=== PATIENT | female | born 2000 | race Hispanic/Latino ===

== ENCOUNTER 2021-06-17 18:14 | Emergency (ER) | payer OTHER, MEDICAID, SELFPAY ==
[2021-06-17 18:28] VITALS: BP 130/63; PULSE 78; RESP 19; TEMP 36.5; O2SAT 96; BMI 23.9
--- NOTE | 2021-06-17 19:16 | DI.US.S_ITS ---
PROCEDURE: US PELVIC COMPLETE INDICATIONS: RIGHT PELVIC PAIN TECHNIQUE: Real-time scanning was performed of the pelvic organs, with image documentation. Additional endovaginal scanning was necessary due to incomplete visualization of the adnexal and endometrial structures by transabdominal scanning. COMPARISON: None. FINDINGS: Uterus: Uterus is anteverted and normal in size at 6.9 x 3.2 x 3.7 cm. The myometrium is homogeneous. The endometrium measures 7.9 mm combined thickness. Ovaries: The right ovary measures 2.7 x 2.4 x 4.1 cm. The left ovary measures 3.3 x 3.1 x 2.8 cm. The ovaries have a normal sonographic appearance. There is a complex cyst in the left ovary measuring 1.9 x 2.0 x 2.0 cm. No adnexal masses are seen. Other: No pathologic free abdominal or pelvic fluid. IMPRESSION: 1. A cause for right pelvic pain is not identified. 2. There is a 1.9 x 2.0 x 2.0 complex cyst in left ovary, most likely a hemorrhagic cyst. If clinically indicated, a follow-up ultrasound is recommended in 6-12 weeks. 3. No free fluid in the cul-de-sac. We strive to produce accurate, complete, and clear reports of imaging services. To assist us in improving patient care, this report was composed using standard report templates and voice recognition software. Therefore, it may contain abnormal punctuation, insertions and/or omissions. Occasional wrong-word or sound-alike substitutions may occur. Though we review the report and make efforts to correct it, we do recommend that the report be read carefully in proper context to recognize any text inaccuracies. Dictated by: Opal Bonds M.D. on 06/17/2021 at 20:00 Approved by: Opal Bonds M.D. on 06/17/2021 at 20:03
[2021-06-17 19:33] LABS: Add Manual Diff / Slide Review NO; Basophils Absolute Auto 100 /uL (0-100); Basophils Percent Auto 0.8 % (0-2); Eosinophils Absolute Auto 100 /uL (0-450); Eosinophils Percent Auto 1.7 % (2-4); Hematocrit 38.6 % (36-46); Hemoglobin 12.6 g/dL (12.0-16.0); Lymphocytes Absolute Auto 1700 /uL (1100-4500); Lymphocytes Percent Auto 23.6 % (25-40); Mean Corpuscular HGB Conc 32.5 % (30-36); Mean Corpuscular Hemoglobin 26.8 PG (26-34); Mean Corpuscular Volume 82.5 fL (80-100); Monocytes Absolute Auto 600 /uL (0-900); Monocytes Percent Auto 7.8 % (3-14); Neutrophils Absolute Auto 4800 /uL (1500-7000); Neutrophils Percent Auto 66.1 % (50-75); Platelet Count 237 X10^3/uL (150-400); Red Blood Cell Count 4.68 X10^6/uL (4.0-5.2); Red Cell Distribution Width 15.9 % (11.6-14.8); White Blood Cell Count 7.3 X10^3/uL (4.5-11.0)
[2021-06-17 19:49] LABS: Alanine Aminotransferase 11 IU/L (<35); Albumin 4.7 g/dL (3.5-5.0); Albumin Globulin Ratio 1.3 (1.0-2.8); Alkaline Phosphatase 54 U/L (38-126); Aspartate Aminotransferase 29 IU/L (14-36); BUN Creatinine Ratio 13.8 (6-22); Bilirubin Total 0.6 mg/dL (0.2-1.3); Blood Urea Nitrogen 9 mg/dL (7-17); Calcium 9.2 mg/dL (8.4-10.2); Carbon Dioxide 25 mmol/L (22-32); Chloride 106 mmol/L (98-107); Estimated Glomerular Filt Rate > 60 mL/min (>60); Globulin 3.5 g/dL (1.7-4.1); Glucose 92 mg/dL (70-100); HEMOLYSIS 44 (0-50); Lipase 85 U/L (23-300); Potassium 4.2 mmol/L (3.4-5.1); Sodium 141 mmol/L (137-145); Total Protein 8.2 g/dL (6.3-8.2)
--- NOTE | 2021-06-17 20:12 | ED.ABDPAIN ---
HPI - Abdominal Pain <DAISY Roman - Last Filed: 06/17/21 21:18> General Chief Complaint: Abdominal Pain Stated Complaint: ABD pain lower right Time Seen by Provider: 06/17/21 19:10 Source: patient Mode of arrival: Family Vehicle History of Present Illness HPI narrative: This is a 21-year-old female presents to the emergency department complaining of right pelvic and left pelvic tenderness which alternates and comes and goes over the last week. She states she has a history of ovarian cysts. States her last menses was May 26, 2021. She is not on any control this time, states that she is sexually active, denies any abnormal vaginal discharge, fever, other abdominal pain, back pain, flank pain, lightheadedness, weakness, dysuria, or blood in her urine or stool. She states she is having regular bowel movements, denies any pain with them. She denies any nausea, vomiting, or constipation. Related Data Allergies Allergy/AdvReac Type Severity Reaction Status Date / Time No Known Drug Allergies Allergy Verified 06/17/21 18:28 Review of Systems <DAISY Roman - Last Filed: 06/17/21 21:18> Review of Systems Narrative: General: denies fever, chills, malaise, sweats, fatigue Head/Neck: denies headache, neck pain, dizziness Eyes: denies visual changes, eye pain Cardio: denies chest pain, palpitations, edema Respiratory: denies dyspnea, cough, orthopnea GI: denies abdominal pain, nausea, vomiting, or diarrhea, endorses low left pelvic pain, sometimes it is on the right : denies dysuria, hematuria, urinary retention, frequency or incontinence MSK: denies joint pain, muscle weakness Skin: denies rash, itching, skin lesions or other Neuro: denies numbness, tingling Patient History <DAISY Roman - Last Filed: 06/17/21 21:18> Social History Smoking Status: Never smoker Smoking Status: Never smoker alcohol intake frequency: holidays/special occasions only Substance Use Type: marijuana Exam <DAISY Roman - Last Filed: 06/17/21 21:18> Narrative Exam Narrative: Independently reviewed vitals signs and nursing notes. General: cooperative, comfortable, in no acute distress, well developed and well groomed Head: atraumatic, symmetrical facial expressions Neck: supple, atraumatic, without lymphadenopathy. Eyes: pupils equal round and reactive, EOMI, conjunctiva normal Nose: nares patent, no rhinorrhea Mouth/Throat: uvula midline, moist mucus membranes Cardiovascular: regular rate and rhythm, no peripheral edema, warm extremities Respiratory: normal effort, able to speak in complete sentences, no audible wheezing, stridor, or rales. No retractions or tachypnea. GI: abdomen soft, nontender to palpation, nondistended, no masses, no exquisite tenderness with exam, without guarding or rebound. MSK: moves all extremities, ambulatory w/steady gait, neurovascularly intact, no weakness Skin: brisk capillary refill, no rash, no erythema Neuro: normal speech and cognition, A&O x3, normal tone Psych: mental status is grossly normal, congruent mood, normal affect, pleasant and cooperative Initial Vital Signs Initial Vital Signs: Vital Signs Temperature 97.7 F 06/17/21 18:28 Pulse Rate 78 06/17/21 18:28 Respiratory Rate 19 06/17/21 18:28 Blood Pressure 130/63 06/17/21 18:28 Pulse Oximetry 96 06/17/21 18:28 <Herman Lundy DO - Last Filed: 06/17/21 21:46> Initial Vital Signs Initial Vital Signs: Vital Signs Temperature 97.7 F 06/17/21 18:28 Pulse Rate 78 06/17/21 18:28 Respiratory Rate 19 06/17/21 18:28 Blood Pressure 130/63 06/17/21 18:28 Pulse Oximetry 96 06/17/21 18:28 Course <DAISY Roman - Last Filed: 06/17/21 21:18> Orders Ordered: ED Orders 06/17/21 19:10 Complete Blood Count AUTO DIFF Stat Comprehensive Metabolic Panel Stat Lipase Stat 06/17/21 19:16 US pelvic complete Stat Vital Signs Vital signs: Vital Signs - 8 hr 06/17/21 18:28 Temperature 97.7 F Pulse Rate 78 Respiratory Rate 19 Blood Pressure 130/63 Pulse Oximetry 96 <DO Sorin Duckworth Last Filed: 06/17/21 21:46> Orders Ordered: ED Orders 06/17/21 19:10 Complete Blood Count AUTO DIFF Stat Comprehensive Metabolic Panel Stat Lipase Stat 06/17/21 19:16 US pelvic complete Stat Vital Signs Vital signs: Vital Signs - 8 hr 06/17/21 18:28 Temperature 97.7 F Pulse Rate 78 Respiratory Rate 19 Blood Pressure 130/63 Pulse Oximetry 96 MDM - Abdominal Pain <DAISY Roman - Last Filed: 06/17/21 21:18> Lab Data Result diagrams: 06/17/21 19:10 06/17/21 19:10 Labs: Lab Results 06/17/21 06/17/21 Range/Units 19:10 19:10 WBC 7.3 (4.5-11.0) X10^3/uL RBC 4.68 (4.0-5.2) X10^6/uL Hgb 12.6 (12.0-16.0) g/dL Hct 38.6 (36-46) % MCV 82.5 (80-100) fL MCH 26.8 (26-34) PG MCHC 32.5 (30-36) % RDW 15.9 H (11.6-14.8) % Plt Count 237 (150-400) X10^3/uL Neut % (Auto) 66.1 (50-75) % Lymph % (Auto) 23.6 L (25-40) % [place] % (Auto) 7.8 (3-14) % Eos % (Auto) 1.7 L (2-4) % Baso % (Auto) 0.8 (0-2) % Neut # (Auto) 4800 (6016-7418) /uL Lymph # (Auto) 1700 (3158-6338) /uL [place] # (Auto) 600 (0-900) /uL Eos # (Auto) 100 (0-450) /uL Baso # (Auto) 100 (0-100) /uL Sodium 141 (137-145) mmol/L Potassium 4.2 (3.4-5.1) mmol/L Chloride 106 (98-107) mmol/L Carbon Dioxide 25 (22-32) mmol/L BUN 9 (7-17) mg/dL Creatinine 0.65 (0.52-1.04) mg/dL Estimated GFR > 60 (>60) mL/min BUN/Creatinine Ratio 13.8 (6-22) Glucose 92 (70-100) mg/dL Calcium 9.2 (8.4-10.2) mg/dL Total Bilirubin 0.6 (0.2-1.3) mg/dL AST 29 (14-36) IU/L ALT 11 (<35) IU/L Alkaline Phosphatase 54 (38-126) U/L Total Protein 8.2 (6.3-8.2) g/dL Albumin 4.7 (3.5-5.0) g/dL Globulin 3.5 (1.7-4.1) g/dL Albumin/Globulin Ratio 1.3 (1.0-2.8) Lipase 85 (23-300) U/L Point of care testing: Point of Care Testing Test Results Negative Urine Dip Bedside Urine Glucose Negative Bedside Urine Bilirubin - Negative Bedside Urine Ketone - Negative Urine Specific [place] 1.02 Bedside Urine Occult Blood - Negative Bedside Urine pH 6.5 Bedside Urine Protein - Negative Bedside Urine Urobilinogen - Negative Bedside Urine Nitrite - Negative Bedside Urine Leukocytes - Negative Esterase Imaging Data US - MEAT CUTTER APPRENTICE: Radiologist's Impression: PROCEDURE:? US PELVIC COMPLETE ? INDICATIONS:? RIGHT PELVIC PAIN ? TECHNIQUE:? Real-time scanning was performed of the pelvic organs, with image documentation.? Additional endovaginal scanning was necessary due to incomplete visualization of the adnexal and endometrial structures by transabdominal scanning.? ? COMPARISON:? None. ? FINDINGS:? ?? Uterus:? Uterus is anteverted and normal in size at 6.9 x 3.2 x 3.7 cm. The myometrium is homogeneous. ? The endometrium measures 7.9 mm combined thickness.? ? Ovaries:? The right ovary measures 2.7 x 2.4 x 4.1 cm. The left ovary measures 3.3 x 3.1 x 2.8 cm. The ovaries have a normal sonographic appearance. There is a complex cyst in the left ovary measuring 1.9 x 2.0 x 2.0 cm. No adnexal masses are seen. ? Other:? No pathologic free abdominal or pelvic fluid. ? ? IMPRESSION:? ? 1. A cause for right pelvic pain is not identified. 2. There is a 1.9 x 2.0 x 2.0 complex cyst in left ovary, most likely a hemorrhagic cyst. ?If clinically indicated, a follow-up ultrasound is recommended in 6-12 weeks. 3. No free fluid in the cul-de-sac.? ? We strive to produce accurate, complete, and clear reports of imaging services. To assist us in improving patient care, this report was composed using standard report templates and voice recognition software. Therefore, it may contain abnormal punctuation, insertions and/or omissions. Occasional wrong-word or sound-alike substitutions may occur. Though we review the report and make efforts to correct it, we do recommend that the report be read carefully in proper context to recognize any text inaccuracies. ? ? Dictated by: Opal Bonds M.D. on 06/17/2021 at 20:00 ? ? Approved by: Opal Bonds M.D. on 06/17/2021 at 20:03 ? MDM Narrative Medical decision making narrative: To the emergency department complaining of low pelvic pain, history of ovarian cyst. She had normal vital signs, without any exquisite tenderness on exam, no nausea, vomiting, fever, or other associated symptom. Patient's last menses was 05/26/2021. Patient states that she is worried about if she is okay and once every test done to make sure that she is okay. Ultrasound pelvic was completed, there is a 2 x 2 x 2 cm complex cyst in the left ovary, most likely hemorrhagic according to the ultrasound. No free fluid in the cul-de-sac. Patient has an upcoming OBGYN appointment in 10 days. Told her to follow-up with OBGYN about this, she is not currently on any control, talked about how this may be helpful for her if she has experienced this frequently. Also mentioned taking a stool softener if she is having painful bowel movements associated with this cyst. Recommend Tylenol, ibuprofen, heat packs, and following up. She is given strict return precautions for any worsening of her pain, blood in her urine, stool, or emesis if she has some. Or high fever. Patient's lab work is unremarkable. No peritoneal signs on abdominal exam. Patient remains p.o. tolerant. Serial abdominal exam without increase in abdominal pain. Given history and exam, low suspicion for acute abdominal process, such as acute cholecystitis, pancreatitis, perforated viscus, atypical appendicitis, colitis, diverticulitis or torsion. Extensive conversation about ER return precautions and need for close follow-up.. Patient is appropriate and amenable to discharge home. Vital signs are stable on repeat examination is unremarkable. Patient has been informed of results. Patient has been given strict return to ER precautions for any new or worsening symptoms. Patient understands to follow up closely with outpatient providers as instructed. Patient understands plan and agrees to discharge home. All questions and concerns answered at this time. <Herman Lundy, DO - Last Filed: 06/17/21 21:46> Lab Data Labs: Lab Results 06/17/21 06/17/21 Range/Units 19:10 19:10 WBC 7.3 (4.5-11.0) X10^3/uL RBC 4.68 (4.0-5.2) X10^6/uL Hgb 12.6 (12.0-16.0) g/dL Hct 38.6 (36-46) % MCV 82.5 (80-100) fL MCH 26.8 (26-34) PG MCHC 32.5 (30-36) % RDW 15.9 H (11.6-14.8) % Plt Count 237 (150-400) X10^3/uL Neut % (Auto) 66.1 (50-75) % Lymph % (Auto) 23.6 L (25-40) % [place] % (Auto) 7.8 (3-14) % Eos % (Auto) 1.7 L (2-4) % Baso % (Auto) 0.8 (0-2) % Neut # (Auto) 4800 (9893-8020) /uL Lymph # (Auto) 1700 (2783-2215) /uL [place] # (Auto) 600 (0-900) /uL Eos # (Auto) 100 (0-450) /uL Baso # (Auto) 100 (0-100) /uL Sodium 141 (137-145) mmol/L Potassium 4.2 (3.4-5.1) mmol/L Chloride 106 (98-107) mmol/L Carbon Dioxide 25 (22-32) mmol/L BUN 9 (7-17) mg/dL Creatinine 0.65 (0.52-1.04) mg/dL Estimated GFR > 60 (>60) mL/min BUN/Creatinine Ratio 13.8 (6-22) Glucose 92 (70-100) mg/dL Calcium 9.2 (8.4-10.2) mg/dL Total Bilirubin 0.6 (0.2-1.3) mg/dL AST 29 (14-36) IU/L ALT 11 (<35) IU/L Alkaline Phosphatase 54 (38-126) U/L Total Protein 8.2 (6.3-8.2) g/dL Albumin 4.7 (3.5-5.0) g/dL Globulin 3.5 (1.7-4.1) g/dL Albumin/Globulin Ratio 1.3 (1.0-2.8) Lipase 85 (23-300) U/L Point of care testing: Point of Care Testing Test Results Negative Urine Dip Bedside Urine Glucose Negative Bedside Urine Bilirubin - Negative Bedside Urine Ketone - Negative Urine Specific [place] 1.02 Bedside Urine Occult Blood - Negative Bedside Urine pH 6.5 Bedside Urine Protein - Negative Bedside Urine Urobilinogen - Negative Bedside Urine Nitrite - Negative Bedside Urine Leukocytes - Negative Esterase Discharge Plan Departure Patient Disposition: Home Clinical Impression: Ovarian cyst Qualifiers: Laterality: left Qualified Code(s): N83.202 - Unspecified ovarian cyst, left side Instructions: Ovarian Cyst Activity Restrictions/Additional Instructions: *You have been diagnosed with a 2 cm ovarian cyst on your left ovary, no cyst on the right. These likely take turns on either side every month with your regular menstrual cycle. Please take 600 mg of ibuprofen every 6 hours as needed for pain, you may also take Tylenol 650 mg with this for this pain every 6 hours. Please stay hydrated, eat plenty of healthy food, this will probably get better when your menses comes in your hormone level drops. If you are having pain with bowel movements, consider adding a stool softener, it can be painful to have bowel movements when you have ovarian cysts. I hope that you start feeling better soon, please follow-up your women's health appointment for all of your regular testing, they will do STD testing if you ask them. Your was negative, no signs of urinary tract infection. Wish you the best. *What to do: *Please continue to take your regular medications as directed. [ ] New medication prescriptions sent to your pharmacy: [ ] [ ] New medication written as a paper prescription [x ] No new medications given *Please follow up with your primary care provider in 2-3 days, call for an appointment. Let them know you were seen in the Emergency Department and that we asked that you be seen for follow-up. We will electronically transmit a record of today's note if your PCP is in our system *If you do not have a primary care provider please contact [phone] to establish care with one of the [facility] primary care providers. *Return to Emergency Department if you should have any new, worsening or concerning symptoms, such as [fever greater than 101F, chills, worsening pain, persistent vomiting or other bothersome symptoms] <Herman Lundy, DO - Last Filed: 06/17/21 21:46> Cosign ED Attending Coscatrachitaature Attestation: Dr Lundy Co-Sign Statement: I was available for consultation during this patient's emergency department visit. This chart is signed by myself for administrative purposes only. I did not have direct contact with this patient during this visit. They were seen independently by the APC.
== END 2021-06-17 20:27 | disposition home or self-care (01) ==
PROVIDERS: Emergency Medicine; Emergency Provider Nurse Practitioner Critical Care Medicine
DX: N83.202 Unspecified ovarian cyst, left side (principal)
CPT/HCPCS: 76830; 76856; 80053; 81003; 81025; 83690; 85025; 99283; 99284

== ENCOUNTER → 2021-12-09 13:47 | Outpatient (CLI) | payer OTHER, MEDICAID, SELFPAY ==
[2021-12-09 16:06] LABS: Urine N gonorrhoeae NOT DETECTED
[2021-12-09 17:03] LABS: Urine Chlamydia NOT DETECTED
== END ==
PROVIDERS: PCP Pediatrics; Visit Provider Registered Nurse
DX: Z11.3 Encounter for screening for infections with a predominantly sexual mode of transmission (principal)
CPT/HCPCS: 87210; 87491; 87591

== ENCOUNTER 2022-07-18 18:56 | Emergency (ER) | payer OTHER, MEDICAID, SELFPAY ==
[2022-07-18 19:15] VITALS: BP 120/75; PULSE 85; RESP 18; TEMP 36.8; O2SAT 98; BMI 26.4
--- NOTE | 2022-07-18 20:45 | ED.HA ---
HPI - Headache General Chief Complaint: Headache Stated Complaint: SEVERE HEADACHE Time Seen by Provider: 07/18/22 20:26 Source: patient Mode of arrival: Ambulatory Limitations: no limitations History of Present Illness HPI Narrative: Patient is a 22-year-old female who is here for evaluation approximately 2 weeks of headache. She states it is on the both sides of her head. She has tried some [id number] migraine medicines without any improvement. It has been consistent every day. No fevers. She is having some sinus congestion another allergy symptoms. She is on allergy medications. She is not having any fevers. No neck pain. She is also here because for the past 2 weeks she is also had bright red blood per rectum. She denies any abdominal pain. No pain with bowel movements. No urinary symptoms. No vaginal bleeding. She is not on anticoagulation. Related Data Previous Rx's Medication Instructions Recorded sertraline 25 mg tablet 25 mg PO DAILY #90 tabs 12/27/21 Allergies Allergy/AdvReac Type Severity Reaction Status Date / Time No Known Drug Allergies Allergy Verified 10/05/21 08:53 Review of Systems Constitutional Constitutional: Reports system reviewed and no additional complaints, except as documented Eyes Eyes: Reports system reviewed and no additional complaints, except as documented ENT Ears, Nose, Mouth, and Throat: Reports system reviewed and no additional complaints, except as documented Gastrointestinal Gastrointestinal: Reports system reviewed and no additional complaints, except as documented Genitourinary Genitourinary: Reports system reviewed and no additional complaints, except as documented Hematologic/Lymphatic On Anticoagulants: No Patient History Medical History Anxiety and depression (~2014) Family History Father Hypertension Hyperlipidemia Social History Smoking Status: Never smoker Smoking Status: Never smoker tobacco type: vaping alcohol intake frequency: holidays/special occasions only Substance Use Type: marijuana Exam Initial Vital Signs Initial Vital Signs: Vital Signs Temperature 98.2 F 07/18/22 19:15 Pulse Rate 85 07/18/22 19:15 Respiratory Rate 18 07/18/22 19:15 Blood Pressure 120/75 07/18/22 19:15 Pulse Oximetry 98 07/18/22 19:15 Oxygen Delivery Method Room Air 07/18/22 19:15 Const General: cooperative, comfortable and No ill appearing [facility] Head: normal to inspection Resp Effort & Inspection: normal respiratory effort Cardio Rate: regular rate GI Inspection: normal to inspection Skin General: no rashes or lesions noted Course Orders Ordered: ED Orders 07/18/22 21:05 Basic Metabolic Panel Stat Complete Blood Count AUTO DIFF Stat Discontinued Medications Diphenhydramine HCl (Diphenhydramine 50 Mg/Ml Vial) 25 mg IV NOW ONE Stop: 07/18/22 20:49 Last Admin: 07/18/22 21:17 Dose: 25 mg Documented By: ANIBAL Sodium Chloride (Normal Saline 0.9%) 1,000 mls @ 1,000 mls/hr IV BOLUS ONE Stop: 07/18/22 21:47 Last Infusion: 07/18/22 22:15 Dose: 0 mls/hr Documented By: Admin: 07/18/22 21:26 Dose: 1,000 mls/hr Documented By: ANIBAL Ketorolac Tromethamine (Ketorolac 30 Mg/Ml Vial) 30 mg IV NOW ONE Stop: 07/18/22 20:49 Last Admin: 07/18/22 21:21 Dose: 30 mg Documented By: ANIBAL Metoclopramide HCl (Metoclopramide 10 Mg/2 Ml Inj) 10 mg IV NOW ONE Stop: 07/18/22 20:49 Last Admin: 07/18/22 21:26 Dose: 10 mg Documented By: ANIBAL Vital Signs Vital signs: Vital Signs - 8 hr 07/18/22 19:15 07/18/22 21:36 07/18/22 21:37 Temperature 98.2 F Pulse Rate 85 73 Respiratory Rate 18 Blood Pressure 120/75 113/74 Pulse Oximetry 98 99 Oxygen Delivery Method Room Air 07/18/22 21:37 07/18/22 22:00 07/18/22 22:46 Temperature Pulse Rate 72 65 67 Respiratory Rate 16 Blood Pressure 110/63 Pulse Oximetry 99 99 99 Oxygen Delivery Method Room Air Room Air MDM - Headache Lab Data Attestation: I reviewed the patient's lab results. 07/18/22 21:05 07/18/22 21:05 Labs: Lab Results 07/18/22 07/18/22 Range/Units 21:05 21:05 WBC 7.0 (4.5-11.0) X10^3/uL RBC 4.51 (4.0-5.2) X10^6/uL Hgb 12.0 (12.0-16.0) g/dL Hct 36.3 (36-46) % MCV 80.5 (80-100) fL MCH 26.6 (26-34) PG MCHC 33.1 (30-36) % RDW 16.1 H (11.6-14.8) % Plt Count 272 (150-400) X10^3/uL Neut % (Auto) 66.5 (50-75) % Lymph % (Auto) 24.5 L (25-40) % [place] % (Auto) 6.8 (3-14) % Eos % (Auto) 1.2 L (2-4) % Baso % (Auto) 1.0 (0-2) % Neut # (Auto) 4600 (0240-8005) /uL Lymph # (Auto) 1700 (0727-1344) /uL [place] # (Auto) 500 (0-900) /uL Eos # (Auto) 100 (0-450) /uL Baso # (Auto) 100 (0-100) /uL Sodium 139 (137-145) mmol/L Potassium 3.9 (3.4-5.1) mmol/L Chloride 104 (98-107) mmol/L Carbon Dioxide 24 (22-32) mmol/L BUN 12 (7-17) mg/dL Creatinine 0.63 (0.52-1.04) mg/dL Estimated GFR > 60 (>60) mL/min BUN/Creatinine Ratio 19.0 (6-22) Glucose 93 (70-100) mg/dL Calcium 9.4 (8.4-10.2) mg/dL [facility] Narrative Medical decision making narrative: Patient reports almost complete resolution of her headache after medication provided here in the emergency department. There is no indication for radiologic studies. Low suspicion for intracranial hemorrhage, meningitis, mass or other acute pathology. I suspect that this was related to her sinuses given her presentation today. Patient's vital signs are unremarkable. H&H is unremarkable. Rectal bleeding most likely hemorrhoids however she was informed that she needed to talk with her primary doctor about further workup this. No indication for any radiologic studies she was given return precautions. She expressed understanding and agreement. Discharge Plan Departure Patient Disposition: Home Clinical Impression: Headache, Rectal bleeding Instructions: DI for Rectal Bleeding, DI for Headache Activity Restrictions/Additional Instructions: Recommend that you contact your primary care doctor for a follow-up. You can continue to take Tylenol or ibuprofen for any return of symptoms. Return to the emergency department for new or worsening symptoms. Prescriptions: No Action sertraline 25 mg tablet 25 mg PO DAILY Qty: 90 0RF Referrals: Carl Burnett MD [Primary Care Provider] - Stand Alone Forms: Patient Portal/API
[2022-07-18 21:15] LABS: Add Manual Diff / Slide Review NO; Basophils Absolute Auto 100 /uL (0-100); Eosinophils Absolute Auto 100 /uL (0-450); Eosinophils Percent Auto 1.2 % (2-4); Hematocrit 36.3 % (36-46); Lymphocytes Absolute Auto 1700 /uL (1100-4500); Lymphocytes Percent Auto 24.5 % (25-40); Mean Corpuscular HGB Conc 33.1 % (30-36); Mean Corpuscular Hemoglobin 26.6 PG (26-34); Mean Corpuscular Volume 80.5 fL (80-100); Monocytes Absolute Auto 500 /uL (0-900); Monocytes Percent Auto 6.8 % (3-14); Neutrophils Absolute Auto 4600 /uL (1500-7000); Neutrophils Percent Auto 66.5 % (50-75); Platelet Count 272 X10^3/uL (150-400); Red Blood Cell Count 4.51 X10^6/uL (4.0-5.2); Red Cell Distribution Width 16.1 % (11.6-14.8)
[2022-07-18] MEDS: diphenhydrAMINE 50 MG/ML VIAL 25 MG IV (21:17)
[2022-07-18] MEDS: KETOROLAC 30 MG/ML VIAL IV (21:21)
[2022-07-18] MEDS: SODIUM CHLORIDE 0.9% 1,000 ML 1000 ML IV (21:26)
[2022-07-18] MEDS: METOCLOPRAMIDE 10 MG/2 ML INJ IV (21:26)
[2022-07-18 21:32] LABS: Blood Urea Nitrogen 12 mg/dL (7-17); Calcium 9.4 mg/dL (8.4-10.2); Carbon Dioxide 24 mmol/L (22-32); Chloride 104 mmol/L (98-107); Estimated Glomerular Filt Rate > 60 mL/min (>60); Glucose 93 mg/dL (70-100); HEMOLYSIS < 15 (0-50); Potassium 3.9 mmol/L (3.4-5.1); Sodium 139 mmol/L (137-145)
[2022-07-18 21:36] VITALS: PULSE 73; O2SAT 99
[2022-07-18 21:37] VITALS: BP 113/74; PULSE 72; O2SAT 99
[2022-07-18 22:00] VITALS: PULSE 65; O2SAT 99
[2022-07-18 22:46] VITALS: BP 110/63; PULSE 67; RESP 16; O2SAT 99
== END 2022-07-18 22:47 | disposition home or self-care (01) ==
PROVIDERS: Emergency Provider Emergency Medicine; PCP Pediatrics
DX: R51.9 Headache, unspecified (principal); K62.5 Hemorrhage of anus and rectum
CPT/HCPCS: 36415; 80048; 85025; 96361; 96374; 96375; 99284; J1200; J1885; J2765

== ENCOUNTER 2022-09-14 12:06 | Emergency (ER) | payer OTHER, MEDICAID, SELFPAY ==
[2022-09-14 12:27] VITALS: BP 126/73; PULSE 79; RESP 18; TEMP 36.6; O2SAT 99; BMI 26.4
--- NOTE | 2022-09-14 15:16 | DI.US.S_ITS ---
PROCEDURE: US OB TRANSVAGINAL INDICATIONS: CRAMPING - POSITIVE URINE TEST OUTSIDE/PRIOR DATING DATA: Last menstrual period (LMP): Not available. LMP-based estimated date of delivery (YASMIN): Not applicable. First dating scan (date and location): This study. Estimated date of delivery (YASMIN) from first dating scan: A definite intrauterine gestation is not identified. A likely early intrauterine gestation is seen. TECHNIQUE: Real-time scanning was performed of the fetus, with image documentation. Endovaginal scanning: There is what appears to be a somewhat complex gestational sac within the endometrial canal and a likely yolk sac is present within. This is not a definite finding and the mean sac diameter assuming this represents a viable gestation is only 4 mm which correlates with a gestational age of 5 weeks 1 day, generally considered to early to visualize a definite viable intrauterine gestation. No cardiac activity is seen, a pole is not identified. COMPARISON: None. FINDINGS: A single living intrauterine gestation is potentially present but a definite intrauterine gestation is not yet seen. There is a small amount of peritoneal free fluid adjacent to the ovaries but findings suspicious for representing an ectopic is not seen. IMPRESSION: As discussed above a definite intrauterine gestation is not identified but may be present. No sonographic evidence of likelihood of ectopic . If the structure identified within the endometrial space in fact represents a gestational sac it would represent a gestation of approximately 5 weeks 1 day gestational age. Correlation with quantitative beta HCG is recommended and also follow-up repeat OB ultrasound in 7-10 days likely would be warranted. Dictated by: Cecil Echeverria M.D. on 09/14/2022 at 16:23 Approved by: Cecil Echeverria M.D. on 09/14/2022 at 16:30
--- NOTE | 2022-09-14 15:24 | ED.ABDPAIN ---
HPI - Abdominal Pain <Da Welsh PA-C - Last Filed: 09/14/22 17:47> General Chief Complaint: Abdominal Pain Stated Complaint: adb pain/ Time Seen by Provider: 09/14/22 12:50 Source: patient Mode of arrival: Ambulatory History of Present Illness HPI narrative: This is a 22-year-old female presents emergency department due to abdominal cramping. She states that she would a positive test about a week ago with some light vaginal spotting. Denies any vaginal discharge or rashes. Denies any chest pain, nausea, vomiting, or any other concerning signs or symptoms. States that the cramping is very intermittent and mild to moderate. Related Data Previous Rx's Medication Instructions Recorded sertraline 25 mg tablet 25 mg PO DAILY #90 tabs 12/27/21 Allergies Allergy/AdvReac Type Severity Reaction Status Date / Time No Known Drug Allergies Allergy Verified 09/14/22 12:31 Review of Systems <Da Welsh PA-C - Last Filed: 09/14/22 17:47> Review of Systems Narrative: GENERAL: Denies chills, fatigue, malaise, fever, sweats. HEENT: Denies sinus pain, ear pain, sore throat, difficulty swallowing, dizziness. RESPIRATORY: Denies dyspnea, cough, wheezing, hemoptysis, sputum. CARDIOVASCULAR: Denies chest pain, palpitations, orthopnea, edema, GASTROINTESTINAL: Reports abdominal cramping, Denies nausea, vomiting, abdominal pain, diarrhea, constipation, melena. : Denies dysuria, frequency, incontinence, hematuria, urinary retention. MUSCULOSKELETAL: denies weakness, joint pain, or bony pain SKIN: Denies rash, skin lesions, or other NEUROLOGIC: Denies weakness, headache, numbness, change in speech, confusion, seizures, incoordination. PSYCHIATRIC: No concerning psychosocial issues. 12 point review of systems is negative except for those stated above Patient History <Da Welsh PA-C - Last Filed: 09/14/22 17:47> Medical History Anxiety and depression (~2014) Family History Father Hypertension Hyperlipidemia Social History Smoking Status: Current some day smoker Smoking Status: Current some day smoker tobacco type: vaping alcohol intake frequency: holidays/special occasions only Substance Use Type: marijuana Exam <Da Welsh PA-C - Last Filed: 09/14/22 17:47> Narrative Exam Narrative: GENERAL: Well-developed patient, in mild distress. HEAD: Atraumatic. Normocephalic. EYES: Pupils equal round and reactive. Extraocular motions intact. No scleral icterus. No injection or drainage. ENT: Nose without bleeding, purulent drainage. Throat without erythema, tonsillar hypertrophy or exudate. Airway patent. NECK: Trachea midline. Non tender CARDIOVASCULAR: Regular rate and rhythm without murmurs, gallops, or rubs. RESPIRATORY: Clear to auscultation. Breath sounds equal bilaterally. No wheezes, rales, or rhonchi. GASTROINTESTINAL: Abdomen soft, non-tender, nondistended. EXTREMITIES: No edema or joint tenderness. BACK: Nontender without deformity or crepitance. No flank tenderness. NEURO: AOx3. SKIN: No rash or erythema of visible areas Initial Vital Signs Initial Vital Signs: Vital Signs Temperature 97.9 F 09/14/22 12:27 Pulse Rate 79 09/14/22 12:27 Respiratory Rate 18 09/14/22 12:27 Blood Pressure 126/73 09/14/22 12:27 Pulse Oximetry 99 09/14/22 12:27 Oxygen Delivery Method Room Air 09/14/22 12:27 <Noemi Lam DO - Last Filed: 09/15/22 07:24> Initial Vital Signs Initial Vital Signs: Vital Signs Temperature 97.9 F 09/14/22 12:27 Pulse Rate 79 09/14/22 12:27 Respiratory Rate 18 09/14/22 12:27 Blood Pressure 126/73 09/14/22 12:27 Pulse Oximetry 99 09/14/22 12:27 Oxygen Delivery Method Room Air 09/14/22 12:27 Course <Da Welsh PA-C - Last Filed: 09/14/22 17:47> Orders Ordered: ED Orders 09/14/22 15:16 US OB transvaginal Stat 09/14/22 16:35 HCG Quantitative /Beta subunit Stat Vital Signs Vital signs: Vital Signs - 8 hr 09/14/22 12:27 Temperature 97.9 F Pulse Rate 79 Respiratory Rate 18 Blood Pressure 126/73 Pulse Oximetry 99 Oxygen Delivery Method Room Air <Noemi Lam DO - Last Filed: 09/15/22 07:24> Orders Ordered: ED Orders 09/14/22 15:16 US OB transvaginal Stat 09/14/22 16:35 HCG Quantitative /Beta subunit Stat Vital Signs Vital signs: Vital Signs - 8 hr 09/14/22 12:27 Temperature 97.9 F Pulse Rate 79 Respiratory Rate 18 Blood Pressure 126/73 Pulse Oximetry 99 Oxygen Delivery Method Room Air MDM - Abdominal Pain <Da Welsh PA-C - Last Filed: 09/14/22 17:47> Lab Data Labs: Lab Results 09/14/22 Range/Units 16:35 HCG, Quant 1542.3 mIU/mL Point of care testing: Urine Dip Bedside Urine Glucose Negative Bedside Urine Bilirubin - Negative Bedside Urine Ketone - Negative Urine Specific [place] 1.015 Bedside Urine Occult Blood - Negative Bedside Urine pH 8.0 Bedside Urine Protein - Negative Bedside Urine Urobilinogen - Negative Bedside Urine Nitrite - Negative Bedside Urine Leukocytes - Negative Esterase Imaging Data US - OB: Radiologist's Impression: [place] [address] Ultrasound Report Signed Patient: Eli Gibson MR#: [id number] : 2000 Acct:[id number] Age/Sex: 22 / F Date of Service: 09/14/22 Loc: ED Accession Number: [id number] ?? Procedure: US OB transvaginal Ordering Provider: Da Welsh P.A-C PROCEDURE:? US OB TRANSVAGINAL ? INDICATIONS:? CRAMPING - POSITIVE URINE TEST ? OUTSIDE/PRIOR DATING DATA:? Last menstrual period (LMP):? Not available. LMP-based estimated date of delivery (YASMIN):? Not applicable.? First dating scan (date and location):? This study.? Estimated date of delivery (YASMIN) from first dating scan:? A definite intrauterine gestation is not identified.? A likely early intrauterine gestation is seen. ? TECHNIQUE: Real-time scanning was performed of the fetus, with image documentation.? Endovaginal scanning:? There is what appears to be a somewhat complex gestational sac within the endometrial canal and a likely yolk sac is present within.? This is not a definite finding and the mean sac diameter assuming this represents a viable gestation is only 4 mm which correlates with a gestational age of 5 weeks 1 day, generally considered to early to visualize a definite viable intrauterine gestation.? No cardiac activity is seen, a pole is not identified. ? COMPARISON:? None. ? FINDINGS:? A single living intrauterine gestation is potentially present but a definite intrauterine gestation is not yet seen.? There is a small amount of peritoneal free fluid adjacent to the ovaries but findings suspicious for representing an ectopic is not seen.? ? ? IMPRESSION:? As discussed above a definite intrauterine gestation is not identified but may be present.? No sonographic evidence of likelihood of ectopic .? If the structure identified within the endometrial space in fact represents a gestational sac it would represent a gestation of approximately 5 weeks 1 day gestational age.? Correlation with quantitative beta HCG is recommended and also follow-up repeat OB ultrasound in 7-10 days likely would be warranted. ? ? Dictated by: Cecil Echeverria M.D. on 09/14/2022 at 16:23 ? ? Approved by: Cecil Echeverria M.D. on 09/14/2022 at 16:30 ? MDM Narrative Medical decision making narrative: MDM * differential diagnosis includes but not limited to ectopic , intrauterine , threatened , STD * Prior records reviewed: Patient has not been here for similar complaints in the past * My lab interpretation: HCG 1542 which seems appropriate with the patient's timeline * My imgaing interpretation: Ultrasound showed no concerning findings, low likelihood of ectopic * Clinical Decision Rules/Scores evaluated: None * Independent discussions with: None ED Course: This is a 22-year-old female presenting to the emergency department due to abdominal cramping after finding out she was about a week ago. She reports very light spotting. Ob ultrasound showed no concerning findings. Recommended she follow up with her primary care provider for referral to OB for further follow up throughout the . HCG within appropriate range. No other symptoms to address. Shared Decision Making: Discussed plan with patient who is comfortable with the plan Social Considerations: None Disposition: Discharged to home <Noemi Lam, - Last Filed: 09/15/22 07:24> Lab Data Labs: Lab Results 09/14/22 Range/Units 16:35 HCG, Quant 1542.3 mIU/mL Point of care testing: Urine Dip Bedside Urine Glucose Negative Bedside Urine Bilirubin - Negative Bedside Urine Ketone - Negative Urine Specific [place] 1.015 Bedside Urine Occult Blood - Negative Bedside Urine pH 8.0 Bedside Urine Protein - Negative Bedside Urine Urobilinogen - Negative Bedside Urine Nitrite - Negative Bedside Urine Leukocytes - Negative Esterase Discharge Plan Departure Patient Disposition: Home Clinical Impression: Abdominal cramping Activity Restrictions/Additional Instructions: Thank you for coming to the [facility] Emergency Department today. Your ultrasound showed no concerning findings. I recommended follow up with the primary care provider for referral to OB for further follow up visits throughout her . The light spotting described is not concerning at this time. I hope you feel better soon. Prescriptions: No Action sertraline 25 mg tablet 25 mg PO DAILY Qty: 90 0RF Referrals: Carl Burnett MD [Primary Care Provider] - Stand Alone Forms: Patient Portal/API <Noemi Lam DO - Last Filed: 09/15/22 07:24> Cosign ED Attending Artiature Attestation: I was immediately available in the department for consultation. Documentation has been reviewed.
[2022-09-14 17:22] LABS: HCG Quantitative /Beta subunit 1542.3 mIU/mL
== END 2022-09-14 18:00 | disposition home or self-care (01) ==
PROVIDERS: Emergency Provider Physician Assistant Medical; PCP Pediatrics
DX: O26.91 Pregnancy related conditions, unspecified, first trimester (principal); R10.9 Unspecified abdominal pain; Z3A.01 Less than 8 weeks gestation of pregnancy
CPT/HCPCS: 76817; 81003; 84702; 93976; 99281; 99284

== ENCOUNTER 2022-12-12 20:23 | Emergency (ER) | payer OTHER, MEDICAID, SELFPAY ==
[2022-12-12 20:27] VITALS: BP 112/76; PULSE 82; RESP 16; TEMP 37.1; O2SAT 98; BMI 24.7
[2022-12-12 21:43] LABS: Bacteria Urine Many (>30); RBC Urine 5-10/HPF (0-5/HPF); Squamous Epithelial Cell Urine 1-5 /HPF (0-5/HPF); WBC Urine >100/HPF (0-5/HPF)
[2022-12-12 21:44] LABS: Culture Indicated Urine Specimen Cultured
--- NOTE | 2022-12-12 22:23 | ED_ITS ---
HPI - Female Genitourinary General Chief complaint: Abdominal Pain Stated complaint: sharp abd pain Time Seen by Provider: 12/12/22 20:43 Source: patient Mode of arrival: Ambulatory History of Present Illness HPI Narrative: 22-year-old female occasional smoker without chronic medical problems presents with a chief complaint urinary frequency and urgency with some suprapubic discomfort today. She denies fever or chills. She is had no nausea or vomiting. She denies any flank pain. She has no vaginal bleeding or discharge. Related Data Previous Rx's Medication Instructions Recorded sertraline 25 mg tablet 25 mg PO DAILY #90 tabs 12/27/21 cephalexin 500 mg capsule 500 mg PO Q6H 7 days #28 caps 12/12/22 Allergies Allergy/AdvReac Type Severity Reaction Status Date / Time No Known Drug Allergies Allergy Verified 09/14/22 12:31 Review of Systems Review of Systems Narrative: GENERAL: Denies chills, fatigue, malaise, fever, sweats. HEENT: Denies sinus pain, ear pain, sore throat, difficulty swallowing, dizziness. RESPIRATORY: Denies dyspnea, cough, wheezing, hemoptysis, sputum. CARDIOVASCULAR: Denies chest pain, palpitations, orthopnea, edema, GASTROINTESTINAL: Denies nausea, vomiting, abdominal pain, diarrhea, constipation, melena. : See HPI MUSCULOSKELETAL: denies weakness, joint pain, or bony pain SKIN: Denies rash, skin lesions, or other NEUROLOGIC: Denies weakness, headache, numbness, change in speech, confusion, seizures, incoordination. PSYCHIATRIC: No concerning psychosocial issues. 12 point review of systems is negative except for those stated above Patient History Medical History Anxiety and depression (~2014) Family History Father Hypertension Hyperlipidemia tobacco type: cigarettes and vaping alcohol intake frequency: holidays/special occasions only Substance Use Type: does not use Exam Narrative Exam Narrative: GEN: AOx3 and in mild distress EYES: Pupils are equal, round, and reactive to light and accommodation. Extraoccular muscles are intact bilaterally. There is no subconjunctival hem orrhage or exudate. CHEST: Lungs are clear to auscultation bilaterally and free of wheezes, rales, or rhonchi. Heart rate is regular rhythm, there are no murmurs, clicks, rubs, or gallops. There is no chest wall tenderness. ABD: Abdomen is soft and nontender. There is no guarding or rebound. Bowel sounds are normal in all 4 quadrants. There is no mass or organomegaly. EXT: Full painless ROM of all extremities with no loss of sensation or strength. SKIN: Warm, pink, and dry. No erythema or rash Initial Vital Signs Initial Vital Signs: Vital Signs Temperature 98.7 F 12/12/22 20:27 Pulse Rate 82 12/12/22 20:27 Respiratory Rate 16 12/12/22 20:27 Blood Pressure 112/76 12/12/22 20:27 Pulse Oximetry 98 12/12/22 20:27 Oxygen Delivery Method Room Air 12/12/22 20:27 Course Orders Ordered: ED Orders 12/12/22 20:32 Urine Culture Stat Urine Microscopic Stat Discontinued Medications Cefazolin Sodium (Cephalexin 250 Mg Cap Prepack) 1 bottle MISC SEEINSTR ONE Stop: 12/12/22 22:24 Last Admin: 12/12/22 22:29 Dose: 1 bottle Documented By: Phenazopyridine HCl (Phenazopyridine 100 Mg Tablet) 200 mg PO NOW ONE Stop: 12/12/22 22:24 Last Admin: 12/12/22 22:29 Dose: 200 mg Documented By: Vital Signs Vital signs: Vital Signs - 8 hr 12/12/22 20:27 12/12/22 22:34 Temperature 98.7 F Pulse Rate 82 66 Respiratory Rate 16 16 Blood Pressure 112/76 123/75 Pulse Oximetry 98 96 Oxygen Delivery Method Room Air Room Air MDM - Female Genitourinary Lab Data Labs: Lab Results 12/12/22 Range/Units 20:32 Urine RBC 5-10/hpf H (0-5/HPF) Urine WBC >100/hpf H (0-5/HPF) Ur Squamous Epith Cells 1-5 /hpf (0-5/HPF) Urine Bacteria Many (>30) H (None) Ur Culture Indicated? Specimen cultured Micro UA Comment Point of Care Testing Test Results Negative Urine Dip Bedside Urine Glucose Negative Bedside Urine Bilirubin - Negative Bedside Urine Ketone - Negative Urine Specific [place] 1.015 Bedside Urine Occult Blood +++ Bedside Urine pH 6 Bedside Urine Protein + 30 Bedside Urine Urobilinogen - Negative Bedside Urine Nitrite - Negative Bedside Urine Leukocytes +++ 500 Esterase MDM Narrative Medical decision making narrative: [22] year old patient presents with urinary complaints Multiple etiologies for patient's symptoms considered including, but not limited to: [Simple UTI versus pyelonephritis versus other] Prior Charts reviewed in our EMR Primary Historian: patient Labs reviewed and interpreted by myself: Urine POC demonstrates UTI UTI symptoms without evidence of sepsis or pyelonephritis Findings and discharge diagnosis discussed with patient/family followed by verbalization of understanding Return precautions discussed with patient/family whom verbalize understanding of diagnosis and plan Discharge Plan Departure Patient Disposition: Home Clinical Impression: UTI (urinary tract infection) Instructions: DI for Urinary Tract Infection (UTI) Activity Restrictions/Additional Instructions: *You have been diagnosed with [urinary tract infection] *What to do: *Please continue to take your regular medications as directed. [x ] New medication prescriptions sent to your pharmacy: [[facility] ] [ ] New medication written as a paper prescription [ ] No new medications given *Please follow up with your primary care provider in 2-3 days, call for an appointment. Let them know you were seen in the Emergency Department and that we ask that you be seen in follow up. We will electronically transmit a record of today's note if your PCP is in our system *If you do not have a primary care provider please contact the [facility] Resource line at [phone]. They will ask some questions about your medical history and help get you set up with a doctor in the community. *Return to Emergency Department if you should have any new, worsening or concerning symptoms, such as [fever greater than 101 F, shaking chills, worsening pain, persistent vomiting or other bothersome symptoms] Prescriptions: New cephalexin 500 mg capsule 500 mg PO Q6H 7 Days Qty: 28 0RF No Action sertraline 25 mg tablet 25 mg PO DAILY Qty: 90 0RF Referrals: Carl Burnett MD [Primary Care Provider] - Stand Alone Forms: Patient Portal/API
[2022-12-12] MEDS: cephALEXin 250 MG CAP PREPACK 1 BOTTLE MISC (22:29)
[2022-12-12] MEDS: PHENAZOPYRIDINE 100 MG TABLET 200 MG PO (22:29)
[2022-12-12 22:34] VITALS: BP 123/75; PULSE 66; RESP 16; O2SAT 96
== END 2022-12-12 22:34 | disposition home or self-care (01) ==
PROVIDERS: Emergency Provider Emergency Medicine; PCP Pediatrics
DX: N39.0 Urinary tract infection, site not specified (principal)
CPT/HCPCS: 81003; 81015; 81025; 87077; 87086; 87186; 99283

== ENCOUNTER 2024-05-16 00:39 | Observation (INO) | payer OTHER, SELFPAY ==
[2024-05-16] VITALS (10 sets, daily range): BP systolic 87–117; BP diastolic 43–81; PULSE 51–81; RESP 13–21; TEMP 36.2–37.2; O2SAT 96–100; BMI 22.6
--- NOTE | 2024-05-16 | PATH_ITS ---
[facility] Accession Number: [id number] No. of containers..01 Tissue . 01 Material submitted: . product of conception - PRODUCTS OF CONCEPTION . 01 Diagnosis: PRODUCTS OF CONCEPTION: Poorly preserved, villus-type structures in a background of coagulative necrosis and decidualized stromal change, compatible with products of conception. Please correlate with clinical and laboratory findings. MRV 05/21/2024 1209 Local . 01 Comment: This case was also reviewed by Dr. Leatha Rueda (Julie), who agrees with the interpretation. . 01 Electronically signed: . Jeanette Culver MD, Pathologist NPI- [id number] . 01 Gross description: . Received in formalin with two patient identifiers and products of conception, is a small amount of siegel soft tissue admixed with mucohemorrhagic material aggregating to 1.2 0.9 x 0.4 cm. No tissue is identified, and the specimen is submitted entirely in A1. ([id number]) /MRV 05/19/20242003 Local . 01 Pathologist provided ICD-10: O02.1 . 01 CPT . 249448 Specimen Comment: A courtesy copy of this report has been sent to [phone] Performed at: [address] [facility] [address], [place], [place] [id number] MD Adolfo Parker MD Phone: [phone]
--- NOTE | 2024-05-16 02:50 | PC.NURSE ---
pt recently took medication to induce but did not follow up as directed and has been having increased vaginal bleeding with large clots
--- NOTE | 2024-05-16 03:05 | DI.US.S_ITS ---
PROCEDURE: US PELVIC COMPLETE INDICATIONS: vag bleeding in TECHNIQUE: Real-time scanning was performed of the pelvic organs, with image documentation. Additional endovaginal scanning was necessary due to incomplete visualization of the adnexal and endometrial structures by transabdominal scanning. COMPARISON: [facility], , US PELVIC COMPLETE, 06/17/2021, 19:41. FINDINGS: Uterus: Uterus is anteverted and normal in size at 8.0 x 3.5 x 5.1 cm. The myometrium is homogeneous. The endometrium measures 8 mm combined thickness. At the level of the uterine fundus, there is a 1.3 x 1.7 x 1.6 cm area of cyst formation with internal vascularity. Ovaries: The right ovary measures 4.1 x 2.3 x 3.8 cm, with a calculated ovarian volume of 18.3 cc. The left ovary measures 4.2 x 3.1 x 2.5 cm, with a calculated ovarian volume of 17 cc. The ovaries have a normal sonographic appearance. Less than 12 follicles can be seen in each ovary. No adnexal masses are seen. Other: No pathologic free abdominal or pelvic fluid. IMPRESSION: 1. Sonographic findings at the fundal endometrium, which may represent retained products of conception, in the setting of a recent medically assisted termination of . 2. No acute sonographic abnormality of the ovaries. Findings are concordant with the preliminary report. We strive to produce accurate, complete, and clear reports of imaging services. To assist us in improving patient care, this report was composed using standard report templates and voice recognition software. Therefore, it may contain abnormal punctuation, insertions and/or omissions. Occasional wrong-word or sound-alike substitutions may occur. Though we review the report and make efforts to correct it, we do recommend that the report be read carefully in proper context to recognize any text inaccuracies. Dictated by: Addy Avilez M.D. on 05/16/2024 at 8:33 Approved by: Addy Avilez M.D. on 05/16/2024 at 8:35
[2024-05-16 03:10] LABS: Add Manual Diff / Slide Review NO; Basophils Absolute Auto 100 /uL (0-100); Basophils Percent Auto 1.6 % (0-2); Eosinophils Absolute Auto 200 /uL (0-450); Eosinophils Percent Auto 2.6 % (2-4); Hematocrit 23.9 % (36-46); Hemoglobin 7.3 g/dL (12.0-16.0); Lymphocytes Absolute Auto 2300 /uL (1100-4500); Lymphocytes Percent Auto 34.3 % (25-40); Mean Corpuscular HGB Conc 30.4 % (30-36); Mean Corpuscular Hemoglobin 18.8 PG (26-34); Mean Corpuscular Volume 61.7 fL (80-100); Monocytes Absolute Auto 700 /uL (0-900); Monocytes Percent Auto 10.6 % (3-14); Neutrophils Absolute Auto 3400 /uL (1500-7000); Neutrophils Percent Auto 50.9 % (50-75); Platelet Count 347 X10^3/uL (150-400); Red Blood Cell Count 3.87 X10^6/uL (4.0-5.2); Red Cell Distribution Width 17.7 % (11.6-14.8); White Blood Cell Count 6.7 X10^3/uL (4.5-11.0)
--- NOTE | 2024-05-16 03:11 | ED_ITS ---
HPI - General Chief complaint: Urogenital-Female Stated complaint: bleeding after taking a medication Time Seen by Provider: 05/16/24 01:16 Source: patient Mode of arrival: Ambulatory Limitations: no limitations History of Present Illness HPI Narrative: this is a 24-year-old female who is a who had a medical termination of at approximately 11 weeks which was done at [facility] she thinks 2 months to 6 weeks ago. She reports that since then she has had vaginal bleeding. Today she has had bleeding and passed some clots going through 2-3 pads per day. Also, yesterday she had a positive home test. She is not having any cramping. First also incidental elected termination. States that it has been greater than 8 hours since last oral intake. Also concerned about bilateral ankle bruising that she does not know the origin of. No history of easy bruising or coagulation deficiency Related Data Home Medications Medication Instructions Recorded Confirmed No Known Home Medications 05/16/24 05/16/24 Allergies Allergy/AdvReac Type Severity Reaction Status Date / Time No Known Drug Allergies Allergy Verified 09/14/22 12:31 Exam Initial Vital Signs Initial Vital Signs: Vital Signs Temperature 97.6 F 05/16/24 01:18 Pulse Rate 60 05/16/24 01:18 Respiratory Rate 16 05/16/24 01:18 Blood Pressure 117/73 05/16/24 01:18 Pulse Oximetry 100 05/16/24 01:18 Oxygen Delivery Method Room Air 05/16/24 01:18 vital signs are reviewed Const General: cooperative and No acute distress [facility] Head: normocephalic and atraumatic Neck Neck: normal visual inspection Resp Effort & Inspection: normal respiratory effort and able to speak in complete sentences Cardio Rate: regular rate Rhythm: regular rhythm GI Palpation: soft Other: abdomen is nontender without palpable uterus Skin General: warm Neuro General: patient alert and patient oriented x3 Course Orders Ordered: ED Orders 05/16/24 02:56 PT [Prothrombin Time INR] Stat 05/16/24 02:58 ABO RH Type Stat Beta HCG, Quant [HCG Quantitative /Beta subunit] Stat CBC Auto Diff [Complete Blood Count AUTO DIFF] Stat 05/16/24 03:05 US pelvic complete Stat Sodium Chloride (Normal Saline 0.9%) 1,000 mls @ 150 mls/hr IV CONT PRAVEENA Reevaluation(s) Reevaluation #1: patient is interested in D and C if offered by OBGYN Consultations Consultation #1: Discussed with Gynecology, Dr. Chaparro, we will try to add on today for dilation and curettage. Dr Chaparro we will see the patient later this morning and anticipate D&C this morning Vital Signs Vital signs: Vital Signs - 8 hr 05/16/24 01:18 Temperature 97.6 F Pulse Rate 60 Respiratory Rate 16 Blood Pressure 117/73 Pulse Oximetry 100 Oxygen Delivery Method Room Air MDM - OB/Uterine Contractions Lab Data Lab results narrative: labs remarkable for barely detectable quantitative HCG which I would consider to be consistent with a recent . She is anemic with a hemoglobin of 7.3, microcytic with normal platelets 05/16/24 02:58 Labs: Lab Results 05/16/24 05/16/24 Range/Units 02:56 02:58 WBC 6.7 (4.5-11.0) X10^3/uL RBC 3.87 L (4.0-5.2) X10^6/uL Hgb 7.3 L (12.0-16.0) g/dL Hct 23.9 L (36-46) % MCV 61.7 L (80-100) fL MCH 18.8 L (26-34) PG MCHC 30.4 (30-36) % RDW 17.7 H (11.6-14.8) % Plt Count 347 (150-400) X10^3/uL Neut % (Auto) 50.9 (50-75) % Lymph % (Auto) 34.3 (25-40) % [place] % (Auto) 10.6 (3-14) % Eos % (Auto) 2.6 (2-4) % Baso % (Auto) 1.6 (0-2) % Neut # (Auto) 3400 (5001-2701) /uL Lymph # (Auto) 2300 (9623-2301) /uL [place] # (Auto) 700 (0-900) /uL Eos # (Auto) 200 (0-450) /uL Baso # (Auto) 100 (0-100) /uL Platelet Estimate Adequate on smear RBC Morphology See below Anisocytosis 1+ H Microcytosis 1+ H PT 12.7 H (9.4-12.5) SECONDS INR 1.1 (0.9-1.3) HCG, Quant 6.02 mIU/mL Blood Type O Positive Imaging Data US - ESTABLISHMENT GUIDE: Radiologist's Impression: preliminary radiology report heterogenous material within the endometrium that demonstrates vascularity concerning for retained products of conception. MDM Narrative Medical decision making narrative: 24-year-old female presenting with persistent vaginal bleeding after medical termination of about 6 weeks ago. She is hemodynamically stable but significantly anemic. not presently having immediately life-threatening hemorrhage. Quantitative hCG is quite low consistent with recent . Patient was interested in having an D and C and gynecology feels it is appropriate. She will be taken to the operating room later today Discharge Plan Departure Patient Disposition: Admitted to Surgery Clinical Impression: Retained products of conception Prescriptions: No Action No Known Home Medications
[2024-05-16 03:58] LABS: Anisocytosis 1+; Microcytosis 1+; Platelet Estimate Adequate on smear
[2024-05-16 04:22] LABS: HCG Quantitative /Beta subunit 6.02 mIU/mL
[2024-05-16 04:59] LABS: INR 1.1 (0.9-1.3); Prothrombin Time 12.7 SECONDS (9.4-12.5)
[2024-05-16] MEDS: SODIUM CHLORIDE 0.9% 1,000 ML 150 ML IV (06:48)
--- NOTE | 2024-05-16 07:54 | PM.GYNHP.1 ---
History of Present Illness History of Present Illness Reason for admission: vaginal bleeding Narrative: Eli Gibson is a 24 year old who had a medical termination of at approximately 11 weeks which was done at [facility] 2 months to 6 weeks ago. She reports that since then she has had vaginal bleeding. No records are aavailable for review. She is Rh +. Today she has had bleeding and passed some clots going through 2-3 pads per day. Also, yesterday she had a positive home test. She is not having any cramping. First also incidental elected termination. Pelvic ultrasound obtained in the emergency department shows significant retained products of conception with vascular flow. Quantitative HCG is 6. [facility] Medical History Anxiety and depression (~2014) Family History Father Hypertension Hyperlipidemia Social History Smoking Status: Current some day smoker Meds Home Medications and Allergies Home Medications Medication Instructions Recorded Confirmed Type No Known Home Medications 05/16/24 05/16/24 History Allergies Allergy/AdvReac Type Severity Reaction Status Date / Time No Known Drug Allergies Allergy Verified 09/14/22 12:31 Review of Systems Review of Systems Narrative: Problem-specific ROS positives included in HPI Exam Vital Signs (past 8 hours): - 05/16/24 01:18 05/16/24 05:25 Temperature 97.6 F Pulse Rate 60 66 Respiratory Rate 16 16 Blood Pressure 117/73 102/60 Pulse Oximetry 100 97 Oxygen Delivery Method Room Air Room Air Oxygen Delivery Method Room Air Const General: cooperative and comfortable Nutritional Appearance: average body habitus Orientation: alert and oriented x3 HENMT Head: normal to inspection, atraumatic and abrasion Ears: hearing grossly normal bilaterally Face and sinus: face symmetric Eyes General: appearance normal, both eyes and all related structures Conjunctivae: conjunctivae normal Sclera: sclerae normal EOM: EOM intact bilaterally Neck Neck: normal visual inspection Resp Effort & Inspection: normal respiratory effort and able to speak in complete sentences Auscultation: clear to auscultation bilaterally Cardio Rate: regular rate Rhythm: regular rhythm Heart Sounds: S1 normal, S2 normal and no murmurs GI Inspection: normal to inspection Palpation: soft and no hepatosplenomegaly External Female Exam: other (Ligt vaginal bleeding noted) Extrem General: no calf tenderness Psych Appearance: grossly normal Mental Status: mental status grossly normal Speech and Movement: speech and movement normal Mood: congruent mood Affect: normal affect Attitude: cooperative Thought Process: normal Thought Content: normal Judgment: judgment good Objective Labs 05/16/24 02:58 Labs: Laboratory Results - last 24 hr 05/16/24 05/16/24 02:56 02:58 WBC 6.7 RBC 3.87 L Hgb 7.3 L Hct 23.9 L MCV 61.7 L MCH 18.8 L MCHC 30.4 RDW 17.7 H Plt Count 347 Neut % (Auto) 50.9 Lymph % (Auto) 34.3 [place] % (Auto) 10.6 Eos % (Auto) 2.6 Baso % (Auto) 1.6 Neut # (Auto) 3400 Lymph # (Auto) 2300 [place] # (Auto) 700 Eos # (Auto) 200 Baso # (Auto) 100 Platelet Estimate Adequate on smear RBC Morphology See below Anisocytosis 1+ H Microcytosis 1+ H PT 12.7 H INR 1.1 HCG, Quant 6.02 Blood Type O Positive Assessment & Plan Assessment and plan (1) Retained products of conception: Status: Acute Plan Patient counseled regarding alternatives, risks, benefits, and potential complications associated with suction curettage of the uterus. With full understanding of the above, a written consent was executed, signed, and witnessed this date. Time-Based Coding :: [TOTAL MINUTES] spent with patient and on the chart (including review of chart, obtaining history, exam, reviewing outside data, placing orders, documenting exam and treatment plan, and counseling patient) on [DATE].
--- NOTE | 2024-05-16 08:09 | PC.NURSE ---
First contact with patient, OR Gokul bringing pt to OR
--- NOTE | 2024-05-16 08:13 | PM.PREOP ---
Pre-operative Note COVID-19 COVID-19 status: Not tested Interval Note History & Physical reviewed/Exam performed by Physician: Yes Changes to H&P: No
[2024-05-16] MEDS: CEFAZOLIN 2 GM/100 ML PREMIX 100 ML IV (08:21)
--- NOTE | 2024-05-16 08:35 | SUR.OPER ---
Lithotomy on padded OR bed, head on pillow, arms secured on padded arm boards at <90 degrees abduction. Legs secured in padded yellow fins stirrups.
--- NOTE | 2024-05-16 08:47 | P.OP_ITS ---
Operative Date/Time/Diagnoses Date of procedure: 05/16/24 Time of procedure: 08:00 Pre-op diagnosis: Abnormal uterine bleeding Retained products of conception following medically induced Post-op diagnosis: same Procedure & Clinicians Procedure: Procedures Operation Date: 05/16/24 08:15 Actual Procedure Side Surgeon p Dilation and Curettage Errol Chaparro MD Indications: Eli Gibson is a 24 year old who had a medical termination of at approximately 11 weeks which was done at [place] 2 months to 6 weeks ago. She reports that since then she has had vaginal bleeding. No records are aavailable for review. She is Rh +. Today she has had bleeding and passed some clots going through 2-3 pads per day. Also, yesterday she had a positive home test. She is not having any cramping. First also incidental elected termination. Pelvic ultrasound obtained in the emergency department shows significant retained products of conception with vascular flow. Quantitative HCG is 6. Surgeon: Errol Chaparro Anesthesia Type: General Operative Notes Findings: Moderate amounts of necrotic products of conception within uterus. Bimanual shows the uterus to be upper limits of normal size. Right adnexal fullness noted. Closure Type: not applicable Specimen(s): products of conception Estimated blood loss (mL): 15 Blood products transfused: none Procedure in detail: With the patient under general anesthesia in the modified dorsal lithotomy position, she was prepped and draped in the usual manner for suction curettage. A pre-surgical safety time-out was then taken in accordance with [facility] OR protocols. A bivalve speculum was placed in the vagina and the cervix was easily visualized. The anterior lip of the cervix was then grasped with a single-tooth tenaculum and sequential Hegar dilators were used to dilate the cervix to 9 mm. An 8 mm curved suction curette was then used to evacuate the uterus followed by sharp curettage and a 2nd suction evacuation of the uterus resulted in no additional tissues. The operation was terminated by remote with a tenaculum from the cervix and no significant bleeding was encountered. The speculum was removed from the vagina, the patient awakened, and transferred to the PACU for observation and recovery after having tolerated the procedure well. Complications: none Post-operative Condition: stable Disposition: PACU Plan for aftercare: Routine postoperative care with follow-up planned for 2 weeks after surgery or as needed.
[2024-05-16] MEDS: LACTATED RINGERS 1,000 ML 42 ML IV (08:50)
== END 2024-05-16 09:27 | disposition home or self-care (01) ==
LOC: ED 06:09 → AC 07:37
PROVIDERS: Admitting Provider Obstetrics & Gynecology; Emergency Provider Emergency Medicine; PCP Pediatrics; Referring Provider Emergency Medicine; Visit Provider Obstetrics & Gynecology
PROC: (CPT 58120; principal; 2024-05-16 08:15)
DX: O07.4 Failed attempted termination of pregnancy without complication (principal); F17.210 Nicotine dependence, cigarettes, uncomplicated; Z67.40 Type O blood, Rh positive
CPT/HCPCS: 59812; 36415; 76830; 76856; 84702; 85025; 85610; 86850; 86900; 86901; 96360; 99283; 99284; G0378; J0690; J1100; J1885; J2250; J2405; J2590; J2704; J3010

== ENCOUNTER → 2024-05-27 17:02 | Outpatient (CLI) | payer SELFPAY ==
--- NOTE | 2024-05-27 17:02 | DI.US.S_ITS ---
PROCEDURE: US PELVIC COMPLETE INDICATIONS: irregular vaginal bleeding with clots TECHNIQUE: Real-time scanning was performed of the pelvic organs, with image documentation. Additional endovaginal scanning was necessary due to incomplete visualization of the adnexal and endometrial structures by transabdominal scanning. COMPARISON: [facility], US, US PELVIC COMPLETE, 05/16/2024, 3:35. FINDINGS: Uterus: Uterus is anteverted and normal in size at 8.0 x 3.5 x 3.8 cm. The myometrium is heterogeneous. The endometrium measures 5 mm combined thickness. No focal intrauterine abnormalities. Ovaries: The right ovary measures 4.4 x 2.1 x 4.1 cm, with a calculated ovarian volume of 21 cc. The left ovary measures 3.3 x 2.6 x 3.7 cm, with a calculated ovarian volume of 17 cc. The ovaries have a normal sonographic appearance. There greater than 12 follicles in the bilateral ovaries. No adnexal masses are seen. Other: No pathologic free abdominal or pelvic fluid. IMPRESSION: Pelvic ultrasound without acute sonographic abnormalities. Large ovarian volumes bilaterally with greater than 12 follicles seen within each ovary. Findings meet the [place] definition of polycystic ovaries. In the absence of ovulatory dysfunction or clinically/biochemically diagnosed hyperandrogenism, findings are non specific and do not indicate the presence of polycystic ovarian syndrome. We strive to produce accurate, complete, and clear reports of imaging services. To assist us in improving patient care, this report was composed using standard report templates and voice recognition software. Therefore, it may contain abnormal punctuation, insertions and/or omissions. Occasional wrong-word or sound-alike substitutions may occur. Though we review the report and make efforts to correct it, we do recommend that the report be read carefully in proper context to recognize any text inaccuracies. Dictated by: Shubham Long M.D. on 05/27/2024 at 18:38 Approved by: Shubham Long M.D. on 05/27/2024 at 18:40
== END ==
PROVIDERS: PCP Pediatrics; Referring Provider Obstetrics & Gynecology; Visit Provider Obstetrics & Gynecology
DX: N93.9 Abnormal uterine and vaginal bleeding, unspecified (principal)
CPT/HCPCS: 76830; 76856